=== PATIENT | male | born 1945 | race Caucasian/White ===

== ENCOUNTER 2018-05-30 08:58 | Inpatient (IN) | payer MEDICARE, OTHER ==
[2018-05-26 12:36] LABS: BASOPHILS # (AUTO) 0.1 X10'3 (0-0.2); BASOPHILS % (AUTO) 1.3 % (0-1); EOSINOPHILS # (AUTO) 0.9 X10'3 (0-0.9); EOSINOPHILS % (AUTO) 10.9 % (0-6); LYMPHOCYTES # (AUTO) 1.3 X10'3 (1.1-4.8); LYMPHOCYTES % (AUTO) 16.9 % (21-51); MEAN CORPUSCULAR HEMOGLOBIN 30.1 PG (27.0-31.0); MEAN CORPUSCULAR HGB CONC 33.6 % (33.0-36.5); MEAN CORPUSCULAR VOLUME 89.5 FL (78-98); MEAN PLATELET VOLUME 7.7 FL (7.4-10.4); MONOCYTES # (AUTO) 0.6 X10'3 (0-0.9); MONOCYTES % (AUTO) 7.9 % (2-12); NEUTROPHILS # (AUTO) 4.9 X10'3 (1.8-7.7); PRE OP HEMATOCRIT 35.9 % (42.0-52.0); PRE OP HEMOGLOBIN 12.1 g/dL (14.0-17.9); PRE OP PLATELET COUNT 368 X10'3 (140-440); RED BLOOD COUNT 4.01 X10'6 (4.70-6.10); RED CELL DISTRIBUTION WIDTH 15.4 % (11.5-14.5)
[2018-05-26 12:54] LABS: PRE OP PROTIME 10.6 SECONDS (9.0-12.0)
[2018-05-26 12:55] LABS: CLARITY,URINE CLEAR (Clear); COLOR,URINE YELLOW (Yellow); GLUCOSE, URINE NEGATIVE (Neg); KETONES,URINE NEGATIVE (Neg); LEUKOCYTE ESTERASE ,URINE NEGATIVE (Neg); NITRITES, URINE NEGATIVE (Neg); PROTEIN,URINE 100 mg/dl (Neg); UROBILINOGEN,URINE 0.2 E.U/dL (0.2-1.0)
[2018-05-26 12:56] LABS: UA COLLECTION TYPE NON-SPECIFIED
[2018-05-26 13:06] LABS: HEMOGLOBIN A1C 6.9 % (4.5-6.2)
[2018-05-26 13:16] LABS: ALBUMIN 3.8 G/DL (3.4-5.0); ALBUMIN/GLOBULIN RATIO 0.9 (1.1-1.5); ALKALINE PHOSPHATASE 87 IU/L (46-116); BLOOD UREA NITROGEN 23 MG/DL (7-18); BUN/CREATININE RATIO 18.1 (5.4-32.0); CHLORIDE 101 MMOL/L (99-107); CREATININE 1.27 MG/DL (0.60-1.10); PRE OP ALT 35 U/L (30-65); PRE OP ANION GAP 12 (8-16); PRE OP AST 23 U/L (10-37); PRE OP BILIRUB, TOTAL 0.4 MG/DL (0.0-1.0); PRE OP GLUCOSE 187 MG/DL (70-104); PRE OP POTASSIUM 4.2 MMOL/L (3.4-5.1); PRE OP SODIUM 139 MMOL/L (135-145); TOTAL CARBON DIOXIDE 26.5 MMOL/L (24-32); TOTAL PROTEIN 8.1 G/DL (6.4-8.2); eGFR 56 ML/MIN
[2018-05-26 13:20] LABS: BACTERIA,URINE FEW /HPF (Neg); OCCULT BLOOD,URINE NEGATIVE (Neg); SQUAMOUS EPITHELIAL CELL,UR FEW /LPF (FEW); WBC,URINE 0-4 /HPF (0-4)
[~2018-05-30] VITALS: Ht 172.7 cm; Wt 107.0 kg
[2018-05-30] VITALS (22 sets, daily range): BP systolic 103–175; BP diastolic 51–89
[2018-05-30] MEDS: potassium cl 20mEq in 1/2 NS 1,000 ML IV SCH ×2 (06:59→14:59)
[~2018-05-30 08:58] MED LIST: ATOR10TA87 PO; CLOP75TA35 PO; Cefazolin 2GM/50ML dext iso,osmotic IVPB IV ONE; DICL75TA5 PO; DOCUMENT DATE & TIME OF BETA-BLOCKER PO ONE; FERR325T39 PO; GABA-532 PO; GEMF600T4 PO; HYDR25TA4 PO; HYDROmorphone 1 mg/ml syringe IV PRN; INSU100I31 SQ; LISI40TA4 PO; MESSAGE TO PHARMACY PO ONE; METF850T PO; METO50TA17 PO; OMEP20TA23 PO; PARO40TA4 PO; acetaminophen 325mg tablet PO ONE; acetaminophen 325mg tablet PO PRN; albuterol 2.5 MG/3 ML nebule NEB ONE; celeCOXIB 100mg capsule PO ONE; dextrose 50%-water 50ml dispensing syringe IV PRN; dextrose ORAL solution 15 GM/59 ML bottle PO PRN; diphenhydrAMINE 25mg capsule PO PRN; famotidine 20mg tablet PO ONE; gabapentin 300mg capsule PO ONE; glucagon, human recombinant 1mg kit SUBCUT PRN; magnesium hydroxide 30ml (MOM) UD suspension PO PRN; metoclopramide 5 mg/ml inj IV ONE; ondansetron/PF 4mg/2ml inj IV PRN; oxyCODONE SR 10mg (sust. release) tab -2 tabs (20mg) PO ONE; oxyCODONE/APAP 5-325mg tablet PO PRN; ringers solution, lacted 1,000 ML IV SCH; tranexamic acid inj. 1,000 MG in normal saline 100ml IV soln 90 ML IV ONE; vancomycin inj 1,500 MG in normal saline 300ml IV soln IV ONE
[2018-05-30] MEDS ORDERED: LIDOcaine 1% (10mg/ml) 2ml vial ONE (09:19)
[2018-05-30] MEDS ORDERED: DICL-194 PO (10:24)
[2018-05-30] MEDS ORDERED: ROPIVAcaine inj 250 MG, epiNEPHrine inj 0.5 MG, CloNIDine/PF inj 80 MCG in normal salin... SQ ONE (11:00)
[2018-05-30] MEDS ORDERED: MIDAZolam 1mg/ml 10ml vial ONE (11:05)
[2018-05-30] MEDS ORDERED: fentaNYL/PF 50MCG/1 ML 2ML syringe ONE (11:05)
[2018-05-30] MEDS ORDERED: tetracaine 1% (10mg/ml) pres. free inj. ONE (11:07)
[2018-05-30] MEDS ORDERED: vancomycin 1,000mg inj ONE (11:14)
[2018-05-30] MEDS ORDERED: ketorolac trometh. 30mg/ml inj. ONE (11:14)
[2018-05-30] MEDS ORDERED: morphine 4 MG/ML inj SYRINge IV PRN ×2 (12:35)
[2018-05-30] MEDS ORDERED: ringers solution, lacted 1,000 ML IV SCH (12:35)
[2018-05-30] MEDS ORDERED: ondansetron/PF 4mg/2ml inj IV PRN (12:35)
[2018-05-30] MEDS ORDERED: proCHLORperazine 10 MG/2 ml inj IV PRN (12:35)
[2018-05-30] MEDS ORDERED: meperidine/PF 25mg/ml syringe IV PRN ×3 (12:35)
[2018-05-30] MEDS ORDERED: ePHEDrine 50MG/ML INJ. ONE (14:17)
[2018-05-30] MEDS: atorvastatin 10mg tablet PO SCH (20:42)
[2018-05-30] MEDS: ascorbic acid 500mg tablet PO SCH (20:43)
[2018-05-30] MEDS: gabapentin 300mg capsule PO SCH (20:43)
[2018-05-30] MEDS: oxyCODONE/APAP 10/325mg tablet PO PRN (20:43)
[2018-05-30] MEDS: metoprolol tartrate 50mg tablet PO SCH (20:43)
[2018-05-30] MEDS: cefazolin/dext.iso 2gm/50ml 50 ML IV SCH (20:44)
[2018-05-30] MEDS: insulin glargine (Lantus) pen - multi-dose SQ SCH ×2 (20:47→21:00)
[2018-05-30] MEDS: sennosides 8.6mg tablet PO SCH (21:58)
[2018-05-31] VITALS (7 sets, daily range): BP systolic 102–153; BP diastolic 54–74
[2018-05-31] MEDS: potassium cl 20mEq in 1/2 NS 1,000 ML IV SCH ×4 (02:31→22:59)
[2018-05-31] MEDS: cefazolin/dext.iso 2gm/50ml 50 ML IV SCH (02:31)
[2018-05-31] MEDS: oxyCODONE/APAP 10/325mg tablet PO PRN ×3 (05:20→18:53)
[2018-05-31 06:07] LABS: BASOPHILS % (AUTO) 0.1 % (0-1); EOSINOPHILS # (AUTO) 0.3 X10'3 (0-0.9); EOSINOPHILS % (AUTO) 3.1 % (0-6); LYMPHOCYTES # (AUTO) 0.9 X10'3 (1.1-4.8); LYMPHOCYTES % (AUTO) 9.6 % (21-51); MEAN CORPUSCULAR HEMOGLOBIN 29.4 PG (27.0-31.0); MEAN CORPUSCULAR HGB CONC 33.4 % (33.0-36.5); MEAN PLATELET VOLUME 7.9 FL (7.4-10.4); MONOCYTES # (AUTO) 0.8 X10'3 (0-0.9); NEUTROPHILS # (AUTO) 7.4 X10'3 (1.8-7.7); NEUTROPHILS % (AUTO) 78.2 % (42-75); PLATELET COUNT 273 X10'3 (140-440); RED BLOOD COUNT 3.07 X10'6 (4.70-6.10); RED CELL DISTRIBUTION WIDTH 15.6 % (11.5-14.5); WHITE BLOOD COUNT 9.4 X10'3 (4.5-11.0)
[2018-05-31 06:15] LABS: ANION GAP 8 (8-16); CHLORIDE 105 MMOL/L (99-107); POTASSIUM 4.2 MMOL/L (3.5-5.1); SODIUM 139 MMOL/L (135-145); TOTAL CARBON DIOXIDE 26.2 MMOL/L (24-32)
[2018-05-31] MEDS: metoprolol tartrate 50mg tablet PO SCH ×2 (07:28→20:00)
[2018-05-31] MEDS: ferrous sulfate 325mg tablet PO SCH (07:28)
[2018-05-31] MEDS: gabapentin 300mg capsule PO SCH ×3 (07:28→20:47)
[2018-05-31] MEDS: pantoprazole 40mg Tablet.DR PO SCH (07:28)
[2018-05-31] MEDS: HYDROchlorothiazide 25mg tablet PO SCH (07:28)
[2018-05-31] MEDS: PARoxetine 20mg tablet PO SCH (07:29)
[2018-05-31] MEDS: lisinopril 20mg tablet PO SCH (07:29)
[2018-05-31] MEDS: ascorbic acid 500mg tablet PO SCH ×2 (07:29→20:47)
[2018-05-31] MEDS: multivitamins, therapeutics tablet PO SCH (07:29)
[2018-05-31] MEDS: HYDROmorphone 1 mg/ml syringe IV PRN ×2 (07:34→20:58)
[2018-05-31] MEDS ORDERED: bisacodyl 10mg suppository rectal RC PRN (08:00)
[2018-05-31] MEDS ORDERED: clopidogrel 75mg tablet PO SCH (08:00)
[2018-05-31] MEDS: insulin Lispro (HumaLOG) vial - multi-dose SQ SCH ×3 (09:12→18:47)
[2018-05-31 17:22] LABS: HEMATOCRIT 23.1 % (42.0-52.0); HEMOGLOBIN 7.7 g/dl (14.0-17.9); MEAN CORPUSCULAR HEMOGLOBIN 29.4 PG (27.0-31.0); MEAN CORPUSCULAR HGB CONC 33.2 % (33.0-36.5); MEAN CORPUSCULAR VOLUME 88.7 FL (78-98); MEAN PLATELET VOLUME 7.1 FL (7.4-10.4); PLATELET COUNT 344 X10'3 (140-440); RED BLOOD COUNT 2.61 X10'6 (4.70-6.10); RED CELL DISTRIBUTION WIDTH 15.4 % (11.5-14.5); WHITE BLOOD COUNT 9.8 X10'3 (4.5-11.0)
[2018-05-31] MEDS ORDERED: celeCOXIB 100mg capsule PO SCH (20:00)
[2018-05-31] MEDS: atorvastatin 10mg tablet PO SCH (20:47)
[2018-05-31] MEDS: sennosides 8.6mg tablet PO SCH (20:48)
[2018-05-31] MEDS: insulin glargine (Lantus) pen - multi-dose SQ SCH ×2 (21:00→21:20)
[2018-05-31] MEDS ORDERED: PEG 3350/Na sulf,bicarb,Cl/KCl oral sol 4 liter bottle PO ONE (22:30)
[2018-06-01] VITALS (16 sets, daily range): BP systolic 102–127; BP diastolic 41–80
[2018-06-01 02:12] LABS: BASOPHILS # (AUTO) 0.1 X10'3 (0-0.2); EOSINOPHILS # (AUTO) 0.8 X10'3 (0-0.9); EOSINOPHILS % (AUTO) 8.4 % (0-6); LYMPHOCYTES # (AUTO) 1.4 X10'3 (1.1-4.8); LYMPHOCYTES % (AUTO) 14.6 % (21-51); MEAN CORPUSCULAR HEMOGLOBIN 29.7 PG (27.0-31.0); MEAN CORPUSCULAR HGB CONC 33.4 % (33.0-36.5); MEAN CORPUSCULAR VOLUME 89.1 FL (78-98); MEAN PLATELET VOLUME 7.5 FL (7.4-10.4); MONOCYTES % (AUTO) 10.2 % (2-12); NEUTROPHILS # (AUTO) 6.2 X10'3 (1.8-7.7); NEUTROPHILS % (AUTO) 65.8 % (42-75); PLATELET COUNT 270 X10'3 (140-440); RED BLOOD COUNT 2.22 X10'6 (4.70-6.10); RED CELL DISTRIBUTION WIDTH 15.9 % (11.5-14.5); WHITE BLOOD COUNT 9.5 X10'3 (4.5-11.0)
[2018-06-01 02:22] LABS: HEMATOCRIT 19.7 % (42.0-52.0); HEMOGLOBIN 6.6 g/dl (14.0-17.9)
[2018-06-01] MEDS: oxyCODONE/APAP 10/325mg tablet PO PRN ×4 (03:35→19:59)
[2018-06-01] MEDS: HYDROmorphone 1 mg/ml syringe IV PRN ×4 (05:47→18:58)
[2018-06-01] MEDS: gabapentin 300mg capsule PO SCH ×4 (08:00→20:01)
[2018-06-01] MEDS: lisinopril 20mg tablet PO SCH (08:00)
[2018-06-01] MEDS: HYDROchlorothiazide 25mg tablet PO SCH (08:00)
[2018-06-01] MEDS: metoprolol tartrate 50mg tablet PO SCH ×2 (08:00→19:59)
[2018-06-01] MEDS: insulin Lispro (HumaLOG) vial - multi-dose SQ SCH ×3 (09:03→19:08)
[2018-06-01 09:17] LABS: HEMATOCRIT 24.3 % (42.0-52.0); HEMOGLOBIN 8.1 g/dl (14.0-17.9); MEAN CORPUSCULAR HEMOGLOBIN 29.7 PG (27.0-31.0); MEAN CORPUSCULAR HGB CONC 33.4 % (33.0-36.5); MEAN CORPUSCULAR VOLUME 88.9 FL (78-98); MEAN PLATELET VOLUME 7.5 FL (7.4-10.4); PLATELET COUNT 218 X10'3 (140-440); RED BLOOD COUNT 2.74 X10'6 (4.70-6.10); RED CELL DISTRIBUTION WIDTH 16.2 % (11.5-14.5); WHITE BLOOD COUNT 9.7 X10'3 (4.5-11.0)
[2018-06-01] MEDS ORDERED: fentaNYL/PF 50MCG/1 ML 2ML syringe ONE (10:24)
[2018-06-01] MEDS ORDERED: MIDAZolam 5mg/5ml vial ONE (10:24)
[2018-06-01] MEDS: ferrous sulfate 325mg tablet PO SCH (13:39)
[2018-06-01] MEDS: multivitamins, therapeutics tablet PO SCH (13:40)
[2018-06-01] MEDS: ascorbic acid 500mg tablet PO SCH ×2 (13:40→19:59)
[2018-06-01] MEDS: pantoprazole 40mg Tablet.DR PO SCH (13:40)
[2018-06-01] MEDS: PARoxetine 20mg tablet PO SCH (13:40)
[2018-06-01 13:50] LABS: HEMATOCRIT 23.9 % (42.0-52.0); HEMOGLOBIN 7.9 g/dl (14.0-17.9); MEAN CORPUSCULAR HEMOGLOBIN 29.1 PG (27.0-31.0); MEAN CORPUSCULAR HGB CONC 33.1 % (33.0-36.5); MEAN CORPUSCULAR VOLUME 88.1 FL (78-98); PLATELET COUNT 215 X10'3 (140-440); RED BLOOD COUNT 2.71 X10'6 (4.70-6.10); RED CELL DISTRIBUTION WIDTH 15.9 % (11.5-14.5); WHITE BLOOD COUNT 10.3 X10'3 (4.5-11.0)
[2018-06-01] MEDS: atorvastatin 10mg tablet PO SCH (19:59)
[2018-06-01] MEDS: sennosides 8.6mg tablet PO SCH (20:00)
[2018-06-01] MEDS: insulin glargine (Lantus) pen - multi-dose SQ SCH ×2 (20:54→21:00)
[2018-06-02] MEDS: oxyCODONE/APAP 10/325mg tablet PO PRN ×6 (00:51→21:21)
[2018-06-02 06:00] VITALS: BP 130/62
[2018-06-02 06:06] LABS: BASOPHILS # (AUTO) 0.1 X10'3 (0-0.2); BASOPHILS % (AUTO) 0.9 % (0-1); EOSINOPHILS # (AUTO) 0.6 X10'3 (0-0.9); EOSINOPHILS % (AUTO) 6.7 % (0-6); HEMATOCRIT 22.6 % (42.0-52.0); LYMPHOCYTES # (AUTO) 1.3 X10'3 (1.1-4.8); LYMPHOCYTES % (AUTO) 13.5 % (21-51); MEAN CORPUSCULAR HGB CONC 35.2 % (33.0-36.5); MEAN CORPUSCULAR VOLUME 87.9 FL (78-98); MEAN PLATELET VOLUME 7.7 FL (7.4-10.4); MONOCYTES % (AUTO) 10.5 % (2-12); NEUTROPHILS # (AUTO) 6.4 X10'3 (1.8-7.7); NEUTROPHILS % (AUTO) 68.4 % (42-75); PLATELET COUNT 221 X10'3 (140-440); RED BLOOD COUNT 2.57 X10'6 (4.70-6.10); RED CELL DISTRIBUTION WIDTH 15.6 % (11.5-14.5); WHITE BLOOD COUNT 9.4 X10'3 (4.5-11.0)
[2018-06-02] MEDS: pantoprazole 40mg Tablet.DR PO SCH (07:25)
[2018-06-02] MEDS: lisinopril 20mg tablet PO SCH (07:25)
[2018-06-02] MEDS: gabapentin 300mg capsule PO SCH ×3 (07:25→19:53)
[2018-06-02] MEDS: ascorbic acid 500mg tablet PO SCH ×2 (07:25→19:53)
[2018-06-02] MEDS: multivitamins, therapeutics tablet PO SCH (07:25)
[2018-06-02] MEDS: PARoxetine 20mg tablet PO SCH (07:25)
[2018-06-02] MEDS: ferrous sulfate 325mg tablet PO SCH (07:25)
[2018-06-02] MEDS: metoprolol tartrate 50mg tablet PO SCH ×2 (07:25→19:53)
[2018-06-02] MEDS: HYDROchlorothiazide 25mg tablet PO SCH (07:25)
[2018-06-02] MEDS: insulin Lispro (HumaLOG) vial - multi-dose SQ SCH ×3 (08:57→18:55)
[2018-06-02 10:01] VITALS: BP 113/39
[2018-06-02 18:00] VITALS: BP 117/55
[2018-06-02 19:52] VITALS: BP 107/44
[2018-06-02] MEDS: atorvastatin 10mg tablet PO SCH (20:01)
[2018-06-02] MEDS: sennosides 8.6mg tablet PO SCH (20:01)
[2018-06-02] MEDS: insulin glargine (Lantus) pen - multi-dose SQ SCH ×2 (21:00→21:08)
[2018-06-02 22:00] VITALS: BP 105/60
[2018-06-03] MEDS: oxyCODONE/APAP 10/325mg tablet PO PRN ×3 (02:40→12:11)
[2018-06-03 06:00] VITALS: BP 107/57
[2018-06-03] MEDS: HYDROchlorothiazide 25mg tablet PO SCH (07:45)
[2018-06-03] MEDS: metoprolol tartrate 50mg tablet PO SCH ×2 (07:45→07:54)
[2018-06-03] MEDS: multivitamins, therapeutics tablet PO SCH (07:45)
[2018-06-03] MEDS: ferrous sulfate 325mg tablet PO SCH (07:45)
[2018-06-03] MEDS: pantoprazole 40mg Tablet.DR PO SCH (07:45)
[2018-06-03] MEDS: gabapentin 300mg capsule PO SCH ×2 (07:45→12:11)
[2018-06-03] MEDS: ascorbic acid 500mg tablet PO SCH (07:46)
[2018-06-03] MEDS: PARoxetine 20mg tablet PO SCH (07:46)
[2018-06-03] MEDS: lisinopril 20mg tablet PO SCH ×2 (07:46→07:54)
[2018-06-03 07:48] VITALS: BP 134/64
[2018-06-03] MEDS: insulin Lispro (HumaLOG) vial - multi-dose SQ SCH (09:18)
[2018-06-03 12:00] VITALS: BP 105/48
== END 2018-06-03 12:30 | disposition home or self-care (01) | DRG 469 ==
LOC: PAS IN 08:58 → EDSTATUS 12:15 → ORTHO 4S 16:30
PROVIDERS: ADMIT Orthopaedic Surgery; ATTEND Orthopaedic Surgery
PROC: 0SRD0J9 Replacement of Left Knee Joint with Synthetic Substitute, Cemented, Open Approach (ICD-10-PCS; principal; 2018-05-30 11:46)
PROC: 0DJD8ZZ Inspection of Lower Intestinal Tract, Via Natural or Artificial Opening Endoscopic (ICD-10-PCS; 2018-06-01)
PROC: 5A09357 Assistance with Respiratory Ventilation, Less than 24 Consecutive Hours, Continuous Positive Airway Pressure (ICD-10-PCS; 2018-06-01)
PROC: 30233N1 Transfusion of Nonautologous Red Blood Cells into Peripheral Vein, Percutaneous Approach (ICD-10-PCS; 2018-06-01)
PROC: 5A09357 Assistance with Respiratory Ventilation, Less than 24 Consecutive Hours, Continuous Positive Airway Pressure (ICD-10-PCS; 2018-06-02)
DX: M17.12 Unilateral primary osteoarthritis, left knee (principal); K57.31 Diverticulosis of large intestine without perforation or abscess with bleeding; D62 Acute posthemorrhagic anemia; E11.40 Type 2 diabetes mellitus with diabetic neuropathy, unspecified; E78.5 Hyperlipidemia, unspecified; I10 Essential (primary) hypertension; I25.10 Atherosclerotic heart disease of native coronary artery without angina pectoris; F32.9 Major depressive disorder, single episode, unspecified; K64.1 Second degree hemorrhoids; N40.0 Benign prostatic hyperplasia without lower urinary tract symptoms; E66.9 Obesity, unspecified; M21.162 Varus deformity, not elsewhere classified, left knee; Z95.1 Presence of aortocoronary bypass graft; Z98.1 Arthrodesis status; Z79.02 Long term (current) use of antithrombotics/antiplatelets; Z79.4 Long term (current) use of insulin; Z79.82 Long term (current) use of aspirin; Z79.899 Other long term (current) drug therapy; Z87.891 Personal history of nicotine dependence; Z68.35 Body mass index [BMI] 35.0-35.9, adult
CPT/HCPCS: 36415; 45378; 71046; 73560; 80051; 80053; 81001; 82948; 83036; 85025; 85027; 85610; 85730; 86885; 86900; 86901; 86920; 87070; 94640; 97110; 97116; 97161; 97530; A4315; A4620; A6455; A7000; C1713; C1758; C1776; G0500; J0171; J0690; J0735; J1170; J1815; J1885; J2250; J2765; J2795; J3010; J3370; J3490; J7030; J7120; P9016

== ENCOUNTER 2018-11-02 07:30 | Inpatient (IN) | payer MEDICARE ==
[2018-10-23 16:33] LABS: BASOPHILS # (AUTO) 0.1 X10'3 (0-0.2); EOSINOPHILS # (AUTO) 0.6 X10'3 (0-0.9); EOSINOPHILS % (AUTO) 11.1 % (0-6); LYMPHOCYTES # (AUTO) 0.8 X10'3 (1.1-4.8); LYMPHOCYTES % (AUTO) 14.7 % (21-51); MEAN CORPUSCULAR HEMOGLOBIN 27.5 PG (27.0-31.0); MEAN CORPUSCULAR HGB CONC 31.9 % (33.0-36.5); MEAN CORPUSCULAR VOLUME 86.2 FL (78-98); MEAN PLATELET VOLUME 7.5 FL (7.4-10.4); MONOCYTES # (AUTO) 0.5 X10'3 (0-0.9); MONOCYTES % (AUTO) 9.7 % (2-12); NEUTROPHILS # (AUTO) 3.2 X10'3 (1.8-7.7); NEUTROPHILS % (AUTO) 63.5 % (42-75); PRE OP HEMATOCRIT 41.7 % (42.0-52.0); PRE OP HEMOGLOBIN 13.3 g/dL (14.0-17.9); PRE OP PLATELET COUNT 242 X10'3 (140-440); RED BLOOD COUNT 4.83 X10'6 (4.70-6.10); RED CELL DISTRIBUTION WIDTH 22.7 % (11.5-14.5)
[2018-10-23 16:37] LABS: CLARITY,URINE CLEAR (Clear); COLOR,URINE YELLOW (Yellow); GLUCOSE, URINE NEGATIVE (Neg); KETONES,URINE NEGATIVE (Neg); LEUKOCYTE ESTERASE ,URINE NEGATIVE (Neg); NITRITES, URINE NEGATIVE (Neg); OCCULT BLOOD,URINE TRACE-INTACT (Neg); PH,URINE 5.5 (4.8-8.0); PROTEIN,URINE >=300 mg/dl (Neg); UROBILINOGEN,URINE 0.2 E.U/dL (0.2-1.0)
[2018-10-23 16:39] LABS: UA COLLECTION TYPE CLN CATCH MIDSTREAM
[2018-10-23 16:44] LABS: ALBUMIN 3.6 G/DL (3.4-5.0); ALBUMIN/GLOBULIN RATIO 0.9 (1.1-1.5); ALKALINE PHOSPHATASE 95 IU/L (46-116); BLOOD UREA NITROGEN 14 MG/DL (7-18); CALCIUM 8.5 MG/DL (8.5-10.1); CHLORIDE 100 MMOL/L (99-107); CREATININE 1.17 MG/DL (0.60-1.10); PRE OP ALT 46 U/L (30-65); PRE OP ANION GAP 10 (8-16); PRE OP AST 31 U/L (10-37); PRE OP BILIRUB, TOTAL 0.4 MG/DL (0.0-1.0); PRE OP GLUCOSE 137 MG/DL (70-104); PRE OP PROTIME 10.4 SECONDS (9.0-12.0); PRE OP SODIUM 139 MMOL/L (135-145); TOTAL CARBON DIOXIDE 28.7 MMOL/L (24-32); TOTAL PROTEIN 7.7 G/DL (6.4-8.2); eGFR 61 ML/MIN
[2018-10-23 16:48] LABS: MUCUS STRANDS NONE SEEN /LPF (Neg); SQUAMOUS EPITHELIAL CELL,UR FEW /LPF (FEW)
[2018-10-23 16:49] LABS: BACTERIA,URINE NONE SEEN /HPF (Neg); RBC,URINE 0-2 /HPF (0-2); WBC,URINE 0-4 /HPF (0-4)
[2018-10-23 16:51] LABS: HEMOGLOBIN A1C 7.7 % (4.5-6.2)
[2018-11-02] VITALS (16 sets, daily range): BP systolic 130–178; BP diastolic 63–103
[~2018-11-02] VITALS: Ht 175.3 cm; Wt 110.6 kg
[~2018-11-02 07:30] MED LIST changes: +ASPI-611 PO; +BUPR1PAT21 TRANSUR; -CLOP75TA35 PO; -Cefazolin 2GM/50ML dext iso,osmotic IVPB IV ONE; -DICL75TA5 PO; -DOCUMENT DATE & TIME OF BETA-BLOCKER PO ONE; -GABA-532 PO; -GEMF600T4 PO; -HYDR25TA4 PO; +HYDROmorphone inj. 0.5 MG/0.5 ML DISP.SYRIN IV PRN; -METF850T PO; -METO50TA17 PO; +OXYC-511 PO; -albuterol 2.5 MG/3 ML nebule NEB ONE; +bisacodyl 10mg suppository rectal RC PRN; +cefazolin/dext.iso 2gm/100 ML IV ONE; +insulin Lispro (HumaLOG) vial - multi-dose SQ SCH; -oxyCODONE/APAP 5-325mg tablet PO PRN; +potassium cl 20mEq in 1/2 NS 1,000 ML IV SCH; +tranexamic acid inj. 1,000 MG in normal saline 100 ML IV ONE; -tranexamic acid inj. 1,000 MG in normal saline 100ml IV soln 90 ML IV ONE
[2018-11-02] MEDS: ascorbic acid 500mg tablet PO SCH ×3 (08:00→20:58)
[2018-11-02] MEDS ORDERED: ringers solution, lacted 1,000 ML IV SCH (08:12)
[2018-11-02] MEDS ORDERED: morphine 4 MG/ML inj SYRINge IV PRN ×2 (08:15)
[2018-11-02] MEDS ORDERED: meperidine/PF 25mg/ml syringe IV PRN ×3 (08:15)
[2018-11-02] MEDS ORDERED: ondansetron/PF 4mg/2ml inj IV PRN (08:15)
[2018-11-02] MEDS ORDERED: proCHLORperazine 10 MG/2 ml inj IV PRN (08:15)
[2018-11-02] MEDS ORDERED: LIDOcaine 1% (10mg/ml) 2ml vial ONE (08:47)
[2018-11-02] MEDS ORDERED: insulin regular, human 10 units/0.1 ml syringe SQ ONE (09:05)
[2018-11-02] MEDS ORDERED: vancomycin 1,000mg inj ONE (10:14)
[2018-11-02] MEDS ORDERED: ketorolac trometh. 30mg/ml inj. ONE (10:14)
[2018-11-02] MEDS ORDERED: ROPIVAcaine inj 250 MG, epiNEPHrine inj 0.5 MG, CloNIDine/PF inj 80 MCG in normal salin... IU ONE (10:45)
[2018-11-02] MEDS ORDERED: fentaNYL/PF 50MCG/1 ML 2ML syringe ONE (10:55)
[2018-11-02] MEDS ORDERED: MIDAZolam 1mg/ml 10ml vial ONE (10:55)
[2018-11-02] MEDS ORDERED: BUPIVAcaine/dex-water/PF 7.5 mg/ml 2ml ampul ONE (10:56)
[2018-11-02] MEDS ORDERED: BUPIVAcaine/PF 2.5mg/ml (0.25%) 10ml vial ONE (13:15)
--- NOTE | 2018-11-02 13:55 | NUR ---
Received from OR via ORTHO BED WITH [facility] , accompanied by Anesthesiologist LUPE and report given by Anesthesiolgist. PATIENT WITH KNEE WRAP AND POWDER PACK WITH PAOLA DRAIN TO RIGHT LE WELL ON Q INSERTION SITE. + DP TO RIGHT FOOT.SPINAL LEVEL AT L2. VSS. 20G PIV IN LEFT HAND RUNNING LR AT 100. DENIES PAIN. RESTING IN BED AT THIS TIME. AZAR LEWIS AND ARUN GRIGGS. Addendum: 11/02/18 at 1431 by Kp Sung RN, RN Amended: Links added.
[2018-11-02] MEDS ORDERED: ROPIVACAINE HCL/PF PAIN PUMP 400 ML IJ SCH (15:00)
--- NOTE | 2018-11-02 15:05 | NUR ---
Report called to receiving nurse. Transferred via ORTHO BED WITH ONE BAG OF Belongings AND A PAIR OF GLASSES IN BAG. Special Issues communicated to receiving nurse KRIS PIZANO.VSS, BED LOW, CALL LIGHT PRESENT, DENIES PAIN. + MOVEMENT OF ALL EXTREMITIES. VSS. JERICA PONCE AWARE PATIENT HAS ARRIVED. Addendum: 11/02/18 at 1509 by Kp Sung RN, RN Amended: Links added.
--- NOTE | 2018-11-02 15:07 | NUR ---
I have received patient report from Kp PIZANO
[2018-11-02] MEDS ORDERED: tranexamic acid inj. 1,000 MG in normal saline 100ml IV soln 100 ML IV ONE (16:55)
--- NOTE | 2018-11-02 17:14 | NUR ---
PATIENT STATED HE NEEDED TO VOID, NO URINE OUT IN GRAF, I BLADDER SCANNED PATIENT AND DEFLATED AND INFLATED BALLOON TO SEE IF THERE WAS A PROBELM. i HAD TO PULL GRAF AFTER I REINFLATED BALLOON IT WAS HURTING PATIENT AND BLOOD CAME FROM GRAF. I TRIED TO REINSERT A NEW GRAF WITHOUT LUCK AND I FELT LIKE I REACHED A POINT WHERE THERE WAS A BLOCKAGE, AGAIN SOME BLOOD CAME OUT. I SPOKE WITH DR GARDUNO WHO SAID TO LEAVE THE GRAF OUT FOR A WHILE TO SEE IF PATIENT COULD VOID AND THEN TRY A COUDE LATER IF NO SUCCESS,
[2018-11-02] MEDS: oxyCODONE/APAP 10/325mg tablet PO PRN ×2 (17:19→21:50)
--- NOTE | 2018-11-02 17:58 | NUR ---
I increased patient ropivacaine pump to 10.
--- NOTE | 2018-11-02 18:15 | NUR ---
Patient in room ORTHO 4022. I have received report from Rose Mary PIZANO and had the opportunity to ask questions and assume patient care.
--- NOTE | 2018-11-02 18:30 | NUR ---
I gave patient report to Flakita PIZANO
[2018-11-02] MEDS: cefazolin/dext.iso 2gm/100ml 100 ML IV SCH (18:38)
--- NOTE | 2018-11-02 18:52 | NUR ---
I spoke to Dr. Godinez to order 10mg hydralazine IV for BP 193/120BP
[2018-11-02] MEDS ORDERED: hydrALAZINE 20mg/ml inj. IV ONE (18:55)
[2018-11-02] MEDS: atorvastatin 10mg tablet PO SCH (20:52)
[2018-11-02] MEDS: sennosides 8.6mg tablet PO SCH (20:53)
[2018-11-02] MEDS: gabapentin 300mg capsule PO SCH (20:53)
[2018-11-02] MEDS: insulin glargine (Lantus) pen - multi-dose SQ SCH (21:00)
--- NOTE | 2018-11-02 21:53 | NUR ---
I just increased the Q pump to 12ml/hr due to pain increased to 6out
--- NOTE | 2018-11-02 21:56 | NUR ---
Pain increased to 6/10 so I increased the Q pump to 12ml/hr. I informed the pt's nurse of this change and I also medicated him with Percocet.
[2018-11-02] MEDS ORDERED: LIDOcaine 2% 10ml TOPICAL JELLY (Urojet) MM ONE (23:25)
[2018-11-03] VITALS (8 sets, daily range): BP systolic 144–206; BP diastolic 69–107
[2018-11-03] MEDS ORDERED: LIDOcaine 2% 10ml TOPICAL JELLY (Urojet) MM ONE (00:15)
[2018-11-03] MEDS: cefazolin/dext.iso 2gm/100ml 100 ML IV SCH ×2 (00:51→07:13)
--- NOTE | 2018-11-03 00:59 | NUR ---
bladder scanned pt, pt had 605 in bladder. Got pt up with sit to stand to the toilet, pt peed a alethea amount and had a small blood clot in the toilet. Bladder scanned pt again pt still had 563 in bladder, attempted 3 times to get a Troy Catheter in place, on third attempt was able to get 150 mL of urine out but when I went to blow up balloon it was quite painful for pt and unable to get balloon to inflate had to remove catheter, will attempt to get pt up in a couple of hours with sit to stand.
[2018-11-03] MEDS: oxyCODONE/APAP 10/325mg tablet PO PRN ×6 (01:45→21:57)
--- NOTE | 2018-11-03 01:46 | NUR ---
pt states pain 07/03 so I increased pts Q-pump to 14
--- NOTE | 2018-11-03 05:33 | NUR ---
pt stated he wanted to try and use the retroom, bladder scanned pt had 649 in bladder, used a steady to get pt to bathroom, pt had 500 out
--- NOTE | 2018-11-03 06:20 | NUR ---
Problems reprioritized. Patient report given, questions answered & plan of care reviewed with Rose Mary PIZANO.
--- NOTE | 2018-11-03 06:23 | NUR ---
I have received patient report from Flakita PIZANO
[2018-11-03 06:41] LABS: BASOPHILS % (AUTO) 0.4 % (0-1); EOSINOPHILS # (AUTO) 0.5 X10'3 (0-0.9); EOSINOPHILS % (AUTO) 7.1 % (0-6); HEMATOCRIT 37.5 % (42.0-52.0); HEMOGLOBIN 12.6 g/dl (14.0-17.9); LYMPHOCYTES # (AUTO) 0.5 X10'3 (1.1-4.8); LYMPHOCYTES % (AUTO) 6.8 % (21-51); MEAN CORPUSCULAR HEMOGLOBIN 28.7 PG (27.0-31.0); MEAN CORPUSCULAR HGB CONC 33.5 % (33.0-36.5); MEAN CORPUSCULAR VOLUME 85.8 FL (78-98); MEAN PLATELET VOLUME 7.5 FL (7.4-10.4); MONOCYTES # (AUTO) 0.5 X10'3 (0-0.9); NEUTROPHILS # (AUTO) 6.2 X10'3 (1.8-7.7); NEUTROPHILS % (AUTO) 78.7 % (42-75); PLATELET COUNT 211 X10'3 (140-440); RED BLOOD COUNT 4.37 X10'6 (4.70-6.10); RED CELL DISTRIBUTION WIDTH 19.2 % (11.5-14.5); WHITE BLOOD COUNT 7.7 X10'3 (4.5-11.0)
[2018-11-03 07:05] LABS: ANION GAP 8 (8-16); CHLORIDE 104 MMOL/L (99-107); POTASSIUM 4.3 MMOL/L (3.5-5.1); SODIUM 140 MMOL/L (135-145); TOTAL CARBON DIOXIDE 27.6 MMOL/L (24-32)
[2018-11-03] MEDS: gabapentin 300mg capsule PO SCH ×3 (07:13→21:55)
[2018-11-03] MEDS: ascorbic acid 500mg tablet PO SCH ×2 (07:13→21:39)
[2018-11-03] MEDS: multivitamins, therapeutics tablet PO SCH (07:13)
[2018-11-03] MEDS: pantoprazole 40mg Tablet.DR PO SCH (07:13)
[2018-11-03] MEDS: ferrous sulfate 325mg tablet PO SCH (07:14)
[2018-11-03] MEDS: enoxaparin 40mg/0.4ml syringe SQ SCH (07:14)
[2018-11-03] MEDS: PARoxetine 20mg tablet PO SCH (07:24)
[2018-11-03] MEDS: lisinopril 20mg tablet PO SCH (07:28)
[2018-11-03] MEDS ORDERED: BUTRANS 15 MCG/HR TOP SCH (08:00)
--- NOTE | 2018-11-03 17:16 | NUR ---
I spoke with Dr. Godinez regarding patient high blood pressure 190/110 manual cuff. He ordered hydralazine 10mg IV q4h for systolic >180 and diastolic >100
--- NOTE | 2018-11-03 17:19 | NUR ---
Pt s/p surgery to right knee. Pt with A1c 7.7. Attempted visit with pt at bedside however pt was unavailable. Written protein and DM education with referral to outpatient DM class and RD contact information left at patient's bedside. Will remain available. Addendum: 11/03/18 at [address] Amended: Links added.
[2018-11-03] MEDS: hydrALAZINE 20mg/ml inj. IV PRN (17:21)
--- NOTE | 2018-11-03 18:10 | NUR ---
I GAVE PATIENT REPORT TO SUMAN PIZANO
--- NOTE | 2018-11-03 18:10 | NUR ---
Patient in room ORTHO 4022. I have received report from Rose Mary PIZANO and had the opportunity to ask questions and assume patient care.
--- NOTE | 2018-11-03 18:30 | NUR ---
I gave report to Vanessa PIZANO and she is taking over care of patient.
--- NOTE | 2018-11-03 18:30 | NUR ---
Patient in room ORTHO 4022. I have received report from Radha PIZANO and had the opportunity to ask questions and assume patient care.
--- NOTE | 2018-11-03 20:34 | NUR ---
I dc'd the Qpump because the ball was empty of any medicine. I placed a 2x2 over puncture site and covered it with new OpSite dressing to keep it all covered.
[2018-11-03] MEDS: celeCOXIB 100mg capsule PO SCH (21:39)
[2018-11-03] MEDS: lactobacillus rhamnosus 10,000 MMU CELLS/CAPSULE PO SCH (21:39)
[2018-11-03] MEDS: atorvastatin 10mg tablet PO SCH (21:39)
[2018-11-03] MEDS: sennosides 8.6mg tablet PO SCH (21:41)
[2018-11-03] MEDS: insulin glargine (Lantus) pen - multi-dose SQ SCH (22:28)
[2018-11-04] MEDS: oxyCODONE/APAP 10/325mg tablet PO PRN ×3 (02:17→10:23)
[2018-11-04] MEDS: hydrALAZINE 20mg/ml inj. IV PRN (05:51)
[2018-11-04 06:00] VITALS: BP 184/100
--- NOTE | 2018-11-04 06:13 | NUR ---
Problems reprioritized. Patient report given, questions answered & plan of care reviewed with Rose Mary PIZANO.
[2018-11-04 06:24] LABS: BASOPHILS % (AUTO) 0.2 % (0-1); EOSINOPHILS # (AUTO) 0.8 X10'3 (0-0.9); EOSINOPHILS % (AUTO) 7.7 % (0-6); HEMATOCRIT 44.3 % (42.0-52.0); HEMOGLOBIN 14.1 g/dl (14.0-17.9); LYMPHOCYTES # (AUTO) 1.4 X10'3 (1.1-4.8); LYMPHOCYTES % (AUTO) 12.9 % (21-51); MEAN CORPUSCULAR HEMOGLOBIN 27.8 PG (27.0-31.0); MEAN CORPUSCULAR HGB CONC 31.9 % (33.0-36.5); MEAN CORPUSCULAR VOLUME 87.2 FL (78-98); MONOCYTES # (AUTO) 0.8 X10'3 (0-0.9); MONOCYTES % (AUTO) 7.1 % (2-12); NEUTROPHILS # (AUTO) 7.8 X10'3 (1.8-7.7); NEUTROPHILS % (AUTO) 72.1 % (42-75); PLATELET COUNT 287 X10'3 (140-440); RED BLOOD COUNT 5.08 X10'6 (4.70-6.10); RED CELL DISTRIBUTION WIDTH 19.2 % (11.5-14.5); WHITE BLOOD COUNT 10.8 X10'3 (4.5-11.0)
--- NOTE | 2018-11-04 06:30 | NUR ---
I have received patient report from Gerardo
[2018-11-04] MEDS: ferrous sulfate 325mg tablet PO SCH (08:26)
[2018-11-04] MEDS: celeCOXIB 100mg capsule PO SCH (08:26)
[2018-11-04] MEDS: ascorbic acid 500mg tablet PO SCH (08:26)
[2018-11-04] MEDS: multivitamins, therapeutics tablet PO SCH (08:26)
[2018-11-04] MEDS: pantoprazole 40mg Tablet.DR PO SCH (08:26)
[2018-11-04] MEDS: lisinopril 20mg tablet PO SCH (08:28)
[2018-11-04] MEDS: gabapentin 300mg capsule PO SCH (08:28)
[2018-11-04] MEDS: lactobacillus rhamnosus 10,000 MMU CELLS/CAPSULE PO SCH (08:28)
[2018-11-04] MEDS: enoxaparin 40mg/0.4ml syringe SQ SCH (08:29)
[2018-11-04] MEDS: PARoxetine 20mg tablet PO SCH (08:31)
--- NOTE | 2018-11-04 08:45 | NUR ---
I CALLED PHARMACY TO HAVE JOSE MANUEL BROUGHT UP, PHARMACIST SAID NO COMMUNICATION BETWEEN [employer] AND Tarisa SO SHE WAS UN ABLE TO MAKE INSULIN AND BRING UP.
[2018-11-04 10:00] VITALS: BP 153/88
== END 2018-11-04 12:13 | disposition home or self-care (01) | DRG 470 ==
LOC: EDSTATUS 07:30 → PAS IN 08:17 → ORTHO 4S 15:00
PROVIDERS: ADMIT Orthopaedic Surgery; ATTEND Orthopaedic Surgery
PROC: 3E0T3BZ Introduction of Anesthetic Agent into Peripheral Nerves and Plexi, Percutaneous Approach (ICD-10-PCS; 2018-11-02)
PROC: 5A09357 Assistance with Respiratory Ventilation, Less than 24 Consecutive Hours, Continuous Positive Airway Pressure (ICD-10-PCS; 2018-11-02)
PROC: 8E0Y0CZ Robotic Assisted Procedure of Lower Extremity, Open Approach (ICD-10-PCS; 2018-11-02)
PROC: 0SRC0J9 Replacement of Right Knee Joint with Synthetic Substitute, Cemented, Open Approach (ICD-10-PCS; principal; 2018-11-02 10:55)
PROC: 5A09357 Assistance with Respiratory Ventilation, Less than 24 Consecutive Hours, Continuous Positive Airway Pressure (ICD-10-PCS; 2018-11-04)
DX: M17.11 Unilateral primary osteoarthritis, right knee (principal); D62 Acute posthemorrhagic anemia; E11.9 Type 2 diabetes mellitus without complications; E78.5 Hyperlipidemia, unspecified; M85.661 Other cyst of bone, right lower leg; I10 Essential (primary) hypertension; K21.9 Gastro-esophageal reflux disease without esophagitis; F32.9 Major depressive disorder, single episode, unspecified; Z79.899 Other long term (current) drug therapy; Z79.82 Long term (current) use of aspirin
CPT/HCPCS: 36415; 73560; 80051; 80053; 81001; 82948; 83036; 85025; 85610; 85730; 86885; 86900; 86901; 87070; 93005; 97110; 97116; 97161; 97530; A6455; A7000; C1713; C1758; C1776; G0378; J0171; J0360; J0690; J0735; J1170; J1650; J1815; J1885; J2250; J2765; J2795; J3010; J3370; J3490; J7030; J7120

== ENCOUNTER 2019-02-01 08:50 | Inpatient (IN) | payer MEDICARE ==
[2019-02-01] VITALS (26 sets, daily range): BP systolic 82–148; BP diastolic 34–101
[~2019-02-01] VITALS: Ht 175.3 cm; Wt 112.0 kg
[~2019-02-01 08:50] MED LIST changes: -BUPR1PAT21 TRANSUR; -HYDROmorphone 1 mg/ml syringe IV PRN; -HYDROmorphone inj. 0.5 MG/0.5 ML DISP.SYRIN IV PRN; -MESSAGE TO PHARMACY PO ONE; -acetaminophen 325mg tablet PO ONE; -acetaminophen 325mg tablet PO PRN; -bisacodyl 10mg suppository rectal RC PRN; -celeCOXIB 100mg capsule PO ONE; -dextrose 50%-water 50ml dispensing syringe IV PRN; -dextrose ORAL solution 15 GM/59 ML bottle PO PRN; -diphenhydrAMINE 25mg capsule PO PRN; -gabapentin 300mg capsule PO ONE; -glucagon, human recombinant 1mg kit SUBCUT PRN; -insulin Lispro (HumaLOG) vial - multi-dose SQ SCH; -magnesium hydroxide 30ml (MOM) UD suspension PO PRN; -metoclopramide 5 mg/ml inj IV ONE; -ondansetron/PF 4mg/2ml inj IV PRN; -oxyCODONE SR 10mg (sust. release) tab -2 tabs (20mg) PO ONE; -potassium cl 20mEq in 1/2 NS 1,000 ML IV SCH; -tranexamic acid inj. 1,000 MG in normal saline 100 ML IV ONE
[2019-02-01] MEDS ORDERED: GABA-532 PO (09:20)
[2019-02-01] MEDS ORDERED: THALITONE PO (09:20)
[2019-02-01] MEDS ORDERED: VALS320T17 PO (09:20)
[2019-02-01] MEDS ORDERED: DICL75TA5 PO (09:20)
[2019-02-01] MEDS ORDERED: PANT-47 PO (09:20)
[2019-02-01 10:38] LABS: BASOPHILS % (AUTO) 0.1 % (0-1); EOSINOPHILS % (AUTO) 0.1 % (0-6); LYMPHOCYTES # (AUTO) 0.8 X10'3 (1.1-4.8); MEAN CORPUSCULAR HEMOGLOBIN 32.1 PG (27.0-31.0); MEAN CORPUSCULAR HGB CONC 34.7 g/dL (33.0-36.5); MEAN CORPUSCULAR VOLUME 92.5 FL (78-98); MEAN PLATELET VOLUME 7.9 FL (7.4-10.4); MONOCYTES # (AUTO) 0.6 X10'3 (0-0.9); MONOCYTES % (AUTO) 6.9 % (2-12); NEUTROPHILS # (AUTO) 6.7 X10'3 (1.8-7.7); NEUTROPHILS % (AUTO) 82.9 % (42-75); PRE OP HEMATOCRIT 43.8 % (42.0-52.0); PRE OP HEMOGLOBIN 15.2 g/dL (14.0-17.9); PRE OP PLATELET COUNT 215 X10'3 (140-440); RED BLOOD COUNT 4.73 X10'6 (4.70-6.10); RED CELL DISTRIBUTION WIDTH 15.3 % (11.5-14.5)
[2019-02-01 10:54] LABS: ALBUMIN 3.6 G/DL (3.4-5.0); ALBUMIN/GLOBULIN RATIO 1.1 (1.1-1.5); ALKALINE PHOSPHATASE 65 IU/L (46-116); BLOOD UREA NITROGEN 24 MG/DL (7-18); BUN/CREATININE RATIO 18.3 (5.4-32.0); CALCIUM 8.8 MG/DL (8.5-10.1); CHLORIDE 104 MMOL/L (99-107); CREATININE 1.31 MG/DL (0.60-1.10); PRE OP ALT 53 U/L (30-65); PRE OP ANION GAP 9 (8-16); PRE OP AST 23 U/L (10-37); PRE OP BILIRUB, TOTAL 0.5 MG/DL (0.0-1.0); PRE OP SODIUM 137 MMOL/L (135-145); TOTAL CARBON DIOXIDE 24.1 MMOL/L (24-32); TOTAL PROTEIN 6.9 G/DL (6.4-8.2); eGFR 54 ML/MIN
[2019-02-01 10:55] LABS: PRE OP GLUCOSE 242 MG/DL (70-104)
[2019-02-01] MEDS ORDERED: ROPIVAcaine 0.5% (5mg/ml) 30ml vial ONE ×2 (11:51→11:55)
[2019-02-01] MEDS ORDERED: ketorolac trometh. 30mg/ml inj. ONE (11:55)
[2019-02-01] MEDS ORDERED: epiNEPHrine 1 mg/ml inj ONE (11:55)
[2019-02-01] MEDS ORDERED: vancomycin 1,000mg inj ONE (11:56)
[2019-02-01] MEDS ORDERED: tranexamic acid inj. 1,000 MG in normal saline 100ml IV soln 100 ML IV ONE (12:00)
[2019-02-01] MEDS ORDERED: MIDAZolam 5mg/5ml vial ONE (12:06)
[2019-02-01] MEDS ORDERED: fentaNYL/PF 50MCG/1 ML 2ML syringe ONE (12:06)
[2019-02-01] MEDS ORDERED: ringers solution, lacted 1,000 ML IV SCH (12:53)
[2019-02-01] MEDS ORDERED: morphine 4 MG/ML inj SYRINge IV PRN ×2 (12:55)
[2019-02-01] MEDS ORDERED: ondansetron/PF 4mg/2ml inj IV PRN ×2 (12:55→15:35)
[2019-02-01] MEDS ORDERED: enalaprilat dihydrate 2.5mg/2ml vial IV PRN (12:55)
[2019-02-01] MEDS ORDERED: fentaNYL/PF 50MCG/1 ML 2ML syringe IV PRN ×2 (12:55)
[2019-02-01] MEDS ORDERED: hydrALAZINE 20mg/ml inj. IV PRN (12:55)
--- NOTE | 2019-02-01 13:32 | NUR ---
Received from OR via ORTHO BED WITH [facility] , accompanied by Anesthesiologist GLENDY and report given by Anesthesiolgist. PATIENT WITH 20G PIV IN RIGHT UE RUNNING LR. RIGHT KNEE DRESSING IS CDI. PAOLA DRAIN ON. DRESSING/ KNEE WRAP ARE CDI. + DORSALIS PEDIS PRESENT. VSS. AZAR GRIGGS. Addendum: 02/01/19 at 1351 by Kp Sung RN, RN Amended: Links added.
[2019-02-01] MEDS ORDERED: CHLO25TA2 PO (15:29)
[2019-02-01] MEDS ORDERED: acetaminophen 325mg tablet PO PRN (15:35)
[2019-02-01] MEDS ORDERED: oxyCODONE/APAP 5-325mg tablet PO PRN (15:35)
--- NOTE | 2019-02-01 16:02 | NUR ---
ALL CRITERIA FOR TRANSFER TO THE FLOOR HAS BEEN ACHIEVED. VSS. BED LOW, CALL LIGHT AND VS. SET IN PLACE. JERICA LUCERO PRESENT TO ACCEPT CARE. PATIENT RESTING COMFORTABLY IN BED. BAG OF BELONGINGS SENT WITH PATIENT. DRESSINGS CDI.VSS. DRESSING CDI. GRAF CATHETER WITH SMALL AMOUNT OF CLEAR YELLOW URINE IN BAG. Addendum: 02/01/19 at 1608 by Kp Sung RN, RN Amended: Links added.
[2019-02-01 16:51] LABS: HEMOGLOBIN A1C 8.6 % (4.5-6.2)
--- NOTE | 2019-02-01 18:25 | NUR ---
Patient in room ORTHO 4014. I have received report from JERICA Polo and had the opportunity to ask questions and assume patient care.
--- NOTE | 2019-02-01 18:48 | NUR ---
Report to Susie PIZANO
[2019-02-01] MEDS: oxyCODONE/APAP 5-325mg tablet PO PRN ×2 (18:54→23:00)
[2019-02-01] MEDS ORDERED: magnesium hydroxide 30ml (MOM) UD suspension PO ONE (19:55)
[2019-02-01] MEDS ORDERED: atorvastatin 10mg tablet PO SCH (21:00)
[2019-02-01] MEDS ORDERED: insulin glargine (Lantus) pen - multi-dose SQ SCH (21:00)
[2019-02-02] MEDS: normal saline 1000ml 1,000 ML IV SCH ×2 (01:35→03:40)
[2019-02-02 02:00] VITALS: BP 119/67
[2019-02-02] MEDS: oxyCODONE/APAP 5-325mg tablet PO PRN (03:38)
[2019-02-02 05:00] VITALS: BP 97/45
--- NOTE | 2019-02-02 06:30 | NUR ---
Problems reprioritized. Patient report given, questions answered & plan of care reviewed with JERICA Polo.
[2019-02-02] MEDS ORDERED: losartan 50mg tablet PO SCH (08:00)
[2019-02-02] MEDS ORDERED: chlorthalidone 25mg tablet PO SCH (08:00)
[2019-02-02] MEDS ORDERED: gabapentin 300mg capsule PO SCH (08:00)
[2019-02-02] MEDS ORDERED: aspirin 81mg tablet.DR PO SCH (08:00)
[2019-02-02] MEDS ORDERED: pantoprazole 40mg Tablet.DR PO SCH (08:00)
[2019-02-02] MEDS ORDERED: PARoxetine 20mg tablet PO SCH (08:00)
--- NOTE | 2019-02-02 08:22 | NUR ---
PT DISCHARGED IN STABLE CONDITION. LEFT FACILITY IN PRIVATE VEHICLE WITH . ALL BELONGINGS IN HAND. IV DC. FOLLOW UP INSTRUCTIONS GIVEN, ALL QUESTIONS ANSWERED.
== END 2019-02-02 08:24 | disposition home or self-care (01) | DRG 909 ==
LOC: PAS IN 08:50 → EDSTATUS 11:45 → ORTHO 4S 16:15
PROVIDERS: ADMIT Orthopaedic Surgery; ATTEND Orthopaedic Surgery
PROC: 5A09357 Assistance with Respiratory Ventilation, Less than 24 Consecutive Hours, Continuous Positive Airway Pressure (ICD-10-PCS; 2019-02-01)
PROC: 0SQC0ZZ Repair Right Knee Joint, Open Approach (ICD-10-PCS; 2019-02-01)
PROC: [UNRECOGNIZED PROCEDURE] (2019-02-01)
PROC: 3E0T3BZ Introduction of Anesthetic Agent into Peripheral Nerves and Plexi, Percutaneous Approach (ICD-10-PCS; principal; 2019-02-01 12:07)
PROC: 5A09357 Assistance with Respiratory Ventilation, Less than 24 Consecutive Hours, Continuous Positive Airway Pressure (ICD-10-PCS; 2019-02-02)
DX: T81.32XA Disruption of internal operation (surgical) wound, not elsewhere classified, initial encounter (principal); Z96.651 Presence of right artificial knee joint; E11.9 Type 2 diabetes mellitus without complications; G47.30 Sleep apnea, unspecified; I10 Essential (primary) hypertension; I25.10 Atherosclerotic heart disease of native coronary artery without angina pectoris; Y83.8 Other surgical procedures as the cause of abnormal reaction of the patient, or of later complication, without mention of misadventure at the time of the procedure; K21.9 Gastro-esophageal reflux disease without esophagitis; N40.0 Benign prostatic hyperplasia without lower urinary tract symptoms; F32.9 Major depressive disorder, single episode, unspecified; G89.29 Other chronic pain; M54.9 Dorsalgia, unspecified; Y92.89 Other specified places as the place of occurrence of the external cause; Z79.899 Other long term (current) drug therapy; Z79.82 Long term (current) use of aspirin
CPT/HCPCS: 36415; 80053; 82948; 83036; 85025; 97116; 97161; 97530; A6455; A7000; A9272; C1758; C1776; G0378; J0171; J0690; J1815; J1885; J2250; J2405; J2795; J3010; J3370; J7030; J7120

== ENCOUNTER 2019-03-20 05:56 | Inpatient (IN) | payer MEDICARE ==
[2019-03-20] VITALS (14 sets, daily range): BP systolic 92–135; BP diastolic 51–80
[~2019-03-20] VITALS: Ht 175.3 cm; Wt 110.5 kg
[~2019-03-20 05:56] MED LIST changes: -ASPI-611 PO; +ATOR10TA70 PO; -ATOR10TA87 PO; +CHLO25TA2 PO; +DICL75TA5 PO; +FERR-29 PO; -FERR325T39 PO; +GABA-532 PO; -LISI40TA4 PO; -OMEP20TA23 PO; -OXYC-511 PO; +PANT-47 PO; +VALS320T17 PO; +acetaminophen 325mg tablet PO ONE; +celeCOXIB 100mg capsule PO ONE; +gabapentin 300mg capsule PO ONE; +metoclopramide 5 mg/ml inj IV ONE; +oxyCODONE SR 10mg (sust. release) tab -2 tabs (20mg) PO ONE; +tranexamic acid inj. 1,000 MG in normal saline 100 ML IV ONE
[2019-03-20 06:53] LABS: BASOPHILS # (AUTO) 0.1 X10'3 (0-0.2); BASOPHILS % (AUTO) 1.5 % (0-1); EOSINOPHILS # (AUTO) 0.5 X10'3 (0-0.9); EOSINOPHILS % (AUTO) 7.8 % (0-6); LYMPHOCYTES # (AUTO) 1.2 X10'3 (1.1-4.8); LYMPHOCYTES % (AUTO) 20.1 % (21-51); MEAN CORPUSCULAR HEMOGLOBIN 32.4 PG (27.0-31.0); MEAN CORPUSCULAR HGB CONC 34.3 g/dL (33.0-36.5); MEAN CORPUSCULAR VOLUME 94.4 FL (78-98); MEAN PLATELET VOLUME 7.9 FL (7.4-10.4); MONOCYTES # (AUTO) 0.7 X10'3 (0-0.9); MONOCYTES % (AUTO) 11.4 % (2-12); NEUTROPHILS # (AUTO) 3.6 X10'3 (1.8-7.7); NEUTROPHILS % (AUTO) 59.2 % (42-75); PRE OP HEMATOCRIT 45.1 % (42.0-52.0); PRE OP HEMOGLOBIN 15.5 g/dL (14.0-17.9); PRE OP PLATELET COUNT 188 X10'3 (140-440); RED BLOOD COUNT 4.78 X10'6 (4.70-6.10); RED CELL DISTRIBUTION WIDTH 13.8 % (11.5-14.5)
[2019-03-20 07:08] LABS: ALBUMIN 3.4 G/DL (3.4-5.0); ALBUMIN/GLOBULIN RATIO 0.9 (1.1-1.5); ALKALINE PHOSPHATASE 72 IU/L (46-116); BLOOD UREA NITROGEN 27 MG/DL (7-18); BUN/CREATININE RATIO 20.5 (5.4-32.0); CALCIUM 9.1 MG/DL (8.5-10.1); CHLORIDE 103 MMOL/L (99-107); CREATININE 1.32 MG/DL (0.60-1.10); PRE OP ALT 53 U/L (30-65); PRE OP ANION GAP 9 (8-16); PRE OP AST 27 U/L (10-37); PRE OP BILIRUB, TOTAL 0.6 MG/DL (0.0-1.0); PRE OP POTASSIUM 3.7 MMOL/L (3.4-5.1); PRE OP SODIUM 138 MMOL/L (135-145); TOTAL CARBON DIOXIDE 26.1 MMOL/L (24-32); TOTAL PROTEIN 7.1 G/DL (6.4-8.2); eGFR 53 ML/MIN
[2019-03-20 07:10] LABS: PRE OP GLUCOSE 202 MG/DL (70-104)
[2019-03-20] MEDS ORDERED: sevoflurane 250ml liquid IH ONE (07:10)
[2019-03-20] MEDS ORDERED: naloxone 0.4 mg/ml inj ONE (07:12)
[2019-03-20] MEDS ORDERED: ROPIVAcaine 0.5% (5mg/ml) 30ml vial ONE (07:13)
[2019-03-20] MEDS ORDERED: midazolam 2 mg/2 ml injection ONE (07:15)
[2019-03-20] MEDS ORDERED: fentaNYL/PF 50MCG/1 ML 2ML syringe ONE (07:15)
[2019-03-20] MEDS ORDERED: dexamethasone sod phosphate 4mg/ml inj. ONE (07:16)
[2019-03-20] MEDS ORDERED: LIDOcaine 2% (20mg/ml) 5ml vial ONE (07:16)
[2019-03-20] MEDS ORDERED: propofol inj 20 ML IV ONE (07:16)
[2019-03-20] MEDS ORDERED: ePHEDrine 50MG/ML INJ. ONE (07:26)
[2019-03-20] MEDS ORDERED: vancomycin 1,000mg inj ONE (07:41)
[2019-03-20] MEDS ORDERED: morphine 4 MG/ML inj SYRINge IV PRN ×2 (07:50)
[2019-03-20] MEDS ORDERED: ondansetron/PF 4mg/2ml inj IV PRN (07:50)
[2019-03-20] MEDS ORDERED: ringers solution, lacted 1,000 ML IV SCH (07:50)
[2019-03-20] MEDS ORDERED: labetalol 20mg/4ml (5mg/ml) syringe IV PRN (07:50)
[2019-03-20] MEDS ORDERED: fentaNYL/PF 50MCG/1 ML 2ML syringe IV PRN ×2 (07:50)
[2019-03-20] MEDS ORDERED: hydrALAZINE 20mg/ml inj. IV PRN (07:50)
[2019-03-20] MEDS ORDERED: ondansetron/PF 4mg/2ml inj ONE (08:03)
--- NOTE | 2019-03-20 08:40 | NUR ---
Received from OR via BED, accompanied by Anesthesiologist DR GREEN and report given by Anesthesiologist. PT VERY DROWSY, NO S/S OF DISTRESS/DISCOMFORT. RIGHT LEG IN SPLINT W/SHAWNEE WRAP COVERING FROM UPPER THIGH TO TOP OF ANKLE CDI, FOOT IN POST-OP SHOE. Addendum: 03/20/19 at 0914 by Clotilde Avilez RN Amended: Links added.
[2019-03-20] MEDS ORDERED: oxyCODONE/APAP 10/325mg tablet PO ONE (10:05)
== END 2019-03-20 10:40 | disposition home or self-care (01) | DRG 909 ==
LOC: PAS IN 05:56 → EDSTATUS 07:30
PROVIDERS: ADMIT Orthopaedic Surgery; ATTEND Orthopaedic Surgery
PROC: 3E0T3BZ Introduction of Anesthetic Agent into Peripheral Nerves and Plexi, Percutaneous Approach (ICD-10-PCS; 2019-03-20)
PROC: 0LBQ0ZZ Excision of Right Knee Tendon, Open Approach (ICD-10-PCS; principal; 2019-03-20 07:10)
DX: T81.32XA Disruption of internal operation (surgical) wound, not elsewhere classified, initial encounter (principal); Z47.1 Aftercare following joint replacement surgery; Z96.651 Presence of right artificial knee joint; G47.30 Sleep apnea, unspecified; E11.9 Type 2 diabetes mellitus without complications; I10 Essential (primary) hypertension; W19.XXXA Unspecified fall, initial encounter; E66.9 Obesity, unspecified; Z68.36 Body mass index [BMI] 36.0-36.9, adult; Y93.89 Activity, other specified; Y92.89 Other specified places as the place of occurrence of the external cause; Y99.8 Other external cause status
CPT/HCPCS: 36415; 71045; 80053; 82948; 83036; 85025; 86885; 86900; 86901; 87070; 87075; 87102; A6449; A6455; A7000; J0690; J1100; J2001; J2250; J2310; J2405; J2704; J2765; J2795; J3010; J3370; J7030; J7120; L3260

== ENCOUNTER 2020-08-01 05:20 | Day surgery (SDC) | payer MEDICARE ==
[2020-07-25 15:37] LABS: EOSINOPHILS # (AUTO) 0.6 X10'3 (0-0.9); EOSINOPHILS % (AUTO) 6.2 % (0-6); LYMPHOCYTES # (AUTO) 1.5 X10'3 (1.1-4.8); MONOCYTES # (AUTO) 0.8 X10'3 (0-0.9); PRE OP HEMOGLOBIN 15.4 g/dL (14.0-17.9)
[2020-07-25 15:38] LABS: BASOPHILS # (AUTO) 0.1 X10'3 (0-0.2); LYMPHOCYTES % (AUTO) 17.2 % (21-51); MEAN CORPUSCULAR HEMOGLOBIN 32.8 PG (27.0-31.0); MEAN CORPUSCULAR VOLUME 96.5 FL (78-98); MEAN PLATELET VOLUME 7.7 FL (7.4-10.4); NEUTROPHILS % (AUTO) 66.6 % (42-75); PRE OP HEMATOCRIT 45.2 % (42.0-52.0); PRE OP PLATELET COUNT 202 X10'3 (140-440); RED BLOOD COUNT 4.69 X10'6 (4.70-6.10); RED CELL DISTRIBUTION WIDTH 14.1 % (11.5-14.5)
[2020-07-25 15:53] LABS: ALBUMIN 4.2 G/DL (3.4-5.0); ALBUMIN/GLOBULIN RATIO 1.2 (1.1-1.5); ALKALINE PHOSPHATASE 84 IU/L (46-116); BLOOD UREA NITROGEN 40 MG/DL (7-18); CALCIUM 9.8 MG/DL (8.5-10.1); CHLORIDE 104 MMOL/L (99-107); CREATININE 1.74 MG/DL (0.60-1.10); PRE OP ALT 60 U/L (30-65); PRE OP ANION GAP 5 (8-16); PRE OP AST 40 U/L (10-37); PRE OP BILIRUB, TOTAL 0.6 MG/DL (0.0-1.0); PRE OP GLUCOSE 79 MG/DL (70-104); PRE OP POTASSIUM 3.8 MMOL/L (3.4-5.1); PRE OP SODIUM 141 MMOL/L (135-145); TOTAL CARBON DIOXIDE 32.5 MMOL/L (24-32); TOTAL PROTEIN 7.6 G/DL (6.4-8.2); eGFR 39 ML/MIN
[~2020-08-01] VITALS: Ht 175.3 cm; Wt 118.0 kg
[~2020-08-01 05:20] MED LIST changes: +ASPI-1265 PO; +DULO60CA65 PO; +GUAIFENESIN PO; +LORA-660 PO; +MULT-687 PO; -PANT-47 PO; -PARO40TA4 PO; +TRAM50TA2 PO; +[UNRECOGNIZED DRUG - CODE] PO; -acetaminophen 325mg tablet PO ONE; -cefazolin/dext.iso 2gm/100 ML IV ONE; -celeCOXIB 100mg capsule PO ONE; -famotidine 20mg tablet PO ONE; -gabapentin 300mg capsule PO ONE; -metoclopramide 5 mg/ml inj IV ONE; -oxyCODONE SR 10mg (sust. release) tab -2 tabs (20mg) PO ONE; -tranexamic acid inj. 1,000 MG in normal saline 100 ML IV ONE; -vancomycin inj 1,500 MG in normal saline 300ml IV soln IV ONE
[2020-08-01 05:25] VITALS: BP 130/85
[2020-08-01] MEDS ORDERED: ceFAZolin 2gm in dextrose, iso 50 ML IV ONE (05:30)
[2020-08-01] MEDS ORDERED: famotidine 20mg tablet PO ONE (05:30)
[2020-08-01] MEDS ORDERED: LIDOcaine 1% (10mg/ml) 2ml vial ONE (05:52)
[2020-08-01] MEDS ORDERED: BUPIVAcaine/PF 2.5 mg/ml (0.25%) 30ml vial ONE (06:48)
[2020-08-01] MEDS ORDERED: BUPIVAcaine/PF 2.5mg/ml (0.25%) 10ml vial ONE (07:13)
[2020-08-01] MEDS ORDERED: LIDOcaine 1% 30ml preserv. free vial ONE (08:22)
[2020-08-01] MEDS ORDERED: MIDAZolam 5mg/5ml vial ONE (08:25)
[2020-08-01] MEDS ORDERED: fentaNYL/PF 50MCG/1 ML 2ML syringe ONE (08:25)
[2020-08-01] MEDS ORDERED: propofol inj 20 ML IV ONE (08:28)
[2020-08-01] MEDS ORDERED: LIDOcaine 2% (20mg/ml) 5ml vial ONE (08:28)
[2020-08-01] MEDS ORDERED: ketorolac trometh. 30mg/ml inj. ONE (08:28)
[2020-08-01] MEDS ORDERED: morphine 2 MG/ML inj. syringe IV PRN (08:35)
[2020-08-01] MEDS ORDERED: morphine 4 MG/ML inj SYRINge IV PRN (08:35)
[2020-08-01] MEDS ORDERED: meperidine/PF 25mg/ml syringe IV PRN ×3 (08:35)
[2020-08-01] MEDS ORDERED: proCHLORperazine 10 MG/2 ml inj IV PRN (08:35)
[2020-08-01] MEDS ORDERED: ondansetron/PF 4mg/2ml inj IV PRN (08:35)
[2020-08-01] MEDS ORDERED: ringers solution, lacted 1,000 ML IV SCH (08:35)
[2020-08-01 09:10] VITALS: BP 150/86
--- NOTE | 2020-08-01 09:10 | NUR ---
ADMITTED TO PACU FROM OR ACCOMPANIED BY ANESTHESIA. INTIAL PHYSICAL ASSESSMENT DONE AND RECORDED. REPORT RECEIVED FROM ANESTHESIA.
[2020-08-01 09:20] VITALS: BP 148/74
[2020-08-01 09:30] VITALS: BP 118/75
[2020-08-01 09:40] VITALS: BP 138/86
--- NOTE | 2020-08-01 09:45 | NUR ---
DISCHARGE CRITERIA MET, DISCHARGE INSTRUCTIONS GIVEN, DEMONSTRATES VERBAL UNDERSTANDING. DISCHARGED HOME IN GOOD CONDITION.
== END 2020-08-01 09:45 | disposition home or self-care (01) ==
LOC: PAS 05:20
PROVIDERS: ATTEND Orthopaedic Surgery Hand Surgery
DX: M65.342 Trigger finger, left ring finger (principal); M65.332 Trigger finger, left middle finger; Z20.828 Contact with and (suspected) exposure to other viral communicable diseases; I25.10 Atherosclerotic heart disease of native coronary artery without angina pectoris; I48.91 Unspecified atrial fibrillation; I10 Essential (primary) hypertension; E11.9 Type 2 diabetes mellitus without complications; G47.30 Sleep apnea, unspecified; M17.0 Bilateral primary osteoarthritis of knee; N40.0 Benign prostatic hyperplasia without lower urinary tract symptoms; M16.0 Bilateral primary osteoarthritis of hip; E66.9 Obesity, unspecified; Z68.39 Body mass index [BMI] 39.0-39.9, adult; Z98.890 Other specified postprocedural states; Z95.1 Presence of aortocoronary bypass graft; Z98.1 Arthrodesis status; Z95.0 Presence of cardiac pacemaker; Z79.4 Long term (current) use of insulin; Z79.899 Other long term (current) drug therapy; Z79.01 Long term (current) use of anticoagulants; Z96.653 Presence of artificial knee joint, bilateral; Z87.891 Personal history of nicotine dependence
CPT/HCPCS: 26055; 36415; 80053; 82948; 85025; 87635; 93005; A6222; J1885; J2001; J2250; J2704; J3010; J3490; A4215; A6449; J7120